=== PATIENT | female | born 2000 | race Caucasian/White ===

== ENCOUNTER 2024-09-16 00:05 | Emergency (ER) | payer OTHER ==
[~2024-09-16] VITALS: Ht 165.1 cm; Wt 60.2 kg
[2024-09-16 00:12] VITALS: BP 128/93; PULSE 97; TEMP 98; O2SAT 99
[2024-09-16] MEDS ORDERED: rifampin 300mg capsule PO SCH (01:40)
[2024-09-16] MEDS: DOXYCYCLINE 100MG CAPSULE PO STA (02:02)
[2024-09-16 02:03] VITALS: RESP 16
[2024-09-16] MEDS: rifampin 300mg capsule PO ONE (02:03)
[2024-09-16] MEDS: HYDROcodone/acetaminophen 10/325mg tab PO ONE ×2 (02:03→03:27)
[2024-09-16] MEDS: ondansetron 4mg rapidly disintigrating tab PO ONE (02:04)
[2024-09-16] MEDS ORDERED: RIFA300C65 PO (03:08)
[2024-09-16] MEDS ORDERED: DOXY-1 PO (03:08)
== END 2024-09-16 03:33 | disposition home or self-care (01) ==
LOC: ER 00:07
DX: L03.011 Cellulitis of right finger (principal); F17.200 Nicotine dependence, unspecified, uncomplicated; Z88.2 Allergy status to sulfonamides; Z90.89 Acquired absence of other organs; Z79.899 Other long term (current) drug therapy
CPT/HCPCS: 10060; 26011; 99284; A6449